=== PATIENT | male | born 1995 | race Caucasian/White ===

== ENCOUNTER 2017-02-02 11:49 | Inpatient (IN) | payer BC ==
[~2017-02-02] VITALS: Ht 182.9 cm; Wt 75.5 kg
[2017-02-02 11:50] VITALS: BP 135/81; PULSE 81; RESP 14; TEMP 98.4; O2SAT 97
[2017-02-02 13:16] LABS: AUTOMATED NEUTROPHIL # 3.1 TH/MM3 (1.8-7.7); BASOPHIL % 0.7 % (0.0-2.0); EOSINOPHIL # 0.1 TH/MM3 (0-0.4); EOSINOPHIL % 1.3 % (0.0-4.0); HEMO FLAGS DIFF FINAL; LYMPH % 30.1 % (9.0-44.0); LYMPHOCYTE # 1.6 TH/MM3 (1.0-4.8); MEAN CORPUSCULAR HEMOGLOBIN 31.1 PG (27.0-34.0); MEAN CORPUSCULAR HGB CONC 35.3 % (32.0-36.0); MONO % 7.9 % (0.0-8.0); PLATELET COUNT 207 TH/MM3 (150-450); RED CELL DISTRIBUTION WIDTH 12.6 % (11.6-17.2); WHITE BLOOD COUNT 5.2 TH/MM3 (4.0-11.0)
[2017-02-02 13:20] VITALS: BP_SYST 112; BP_DIAS 18; BP_DIAS 68; PULSE 76; RESP 18; TEMP 98.6; O2SAT 99
[2017-02-02 13:30] LABS: ANION GAP 4 MEQ/L (5-15); BICARBONATE 29.6 MEQ/L (21.0-32.0); BLOOD UREA NITROGEN 5 MG/DL (7-18); CHLORIDE 104 MEQ/L (98-107); GLOMERULAR FILTRATION RATE 104 ML/MIN (>89); POTASSIUM 3.8 MEQ/L (3.5-5.1); SODIUM (NA) 138 MEQ/L (136-145)
[2017-02-02 13:36] LABS: ALCOHOL LESS THAN 3 MG/DL (0-5)
[2017-02-02] MEDS ORDERED: ALUMINUM/MAGNESIUM/SIMETH 30 ML CUP PO PRN (14:15)
[2017-02-02] MEDS ORDERED: MAGNESIUM HYDROXIDE SUSP 30 ML CUP PO PRN (14:15)
[2017-02-02] MEDS ORDERED: diphenhydrAMINE HCL 50 MG/ML VIAL IM PRN (14:15)
[2017-02-02] MEDS ORDERED: hydrOXYzine HCL 50 MG TAB PO PRN (14:15)
--- NOTE | 2017-02-02 14:32 | HHI.HP ---
Provisional Diagnosis Admission Date Recluse I. Brief psychotic disorder Certification of Person's Competence To Provide Express and Informed Consent I have personally examined James Ibrahim , a person being served at [facility] on, Feb 02, 2017 14:20. Express and informed consent means consent voluntarily given in writing, by a competent person, after sufficient explanation and disclosure of the subject matter involved to enable the person to make a knowing and willful decision without any element of force, fraud, deceit, duress, or other form of constraint or coercion. This person is 18 years of age or older, is not now known to be incompetent to consent to treatment with a guardian advocate, and does not have a health care surrogate or proxy currently making medical treatment decisions. I have found this person to be one of the following: [X] Competent to provide express and informed consent, as defined above, for voluntary admission to this facility and is competent to provide express and informed consent for treatment. He/she has the consistent capacity to make well reasoned, willful, and knowing decisions concerning his or her medical or mental health treatment. The person fully and consistently understands the purpose of the admission for examination/placement and is fully capable of personally exercising all rights assured [place] Incompetent to provide express and informed consent to voluntary admission, and this is incompetent to provide express and informed consent to treatment. The person must be transferred to involuntary status and a petition for a guardian advocate filed with the Circuit Court. [] Refusing to provide express and informed consent to voluntary admission but is competent to provide express and informed consent for treatment. The person must be discharged or transferred to involuntary status. Form shall be completed within 24 hours of a person's arrival at the receiving facility and filed in the clinical record of each person: 1. Admitted on a voluntary basis 2. Permitted to provide express and informed consent to his/her own treatment 3. Allowed to transfer from involuntary to voluntary status 4. Prior to permitting a person to consent to his or her own treatment after having been previously found incompetent to consent to treatment. History of Present Illness Capacity: Has Capacity HPI 21-year-old male presents voluntarily after seeing his psychiatrist, Dr. Clifton, for a first appointment today. Apparently he told Dr. Clifton about his suicidal thinking and auditory hallucinations and he was sent here for further evaluation and treatment. The patient remains voluntary because he does want treatment and he does feel he needs to be admitted to the hospital. He has a long psychiatric history which is both complex and problematic. The patient's biological father approximately 7 years ago and the patient has been spiraling downward since that time. He does have a step father and mother who are generally supportive of him but he is attempted to kill himself on multiple occasions by hanging, overdose, cutting himself, etc. He has also had a problem with drug abuse and was treated at [facility] approximately 10 times in the last 7 years. He has been living in a sober living house for the last 2 weeks but does not feel safe there. The auditory hallucinations that he experiences also tell him to use drugs. The patient's presentation is further complicated by the fact that he has had some kind of brain tumor with obvious surgery and he carries multiple scars on his skull. He has a strange voice and affect and he appears to process information with some difficulty. There is a nayeli indifference to his presentation which appears to be related to his brain surgeries/tumor. He feels unsafe at this time and he is unable to contract for safety. He has not been using drugs for the last 2 weeks since residing at the sober living house. Review of Systems Psychiatric: COMPLAINS OF: Anxiety, Depression, Hallucinations, Suicidal Ideation Except as stated in HPI: all other systems reviewed are Neg Past Psych History Psychological trauma history Unknown Violence risk - others (6 mos) Minimal to moderate. Violence risk - self (6 mos) High Substance Abuse History Drugs/Alcohol past 12 months History of substance abuse, including IVDA heroin. Patient has been treated for substance abuse on multiple occasions. His last treatment was at [facility]. He has apparently been clean since his release and currently resides in a sober living house. Past Family Social History Coded Allergies: vancomycin (Verified Allergy, Unknown, 02/02/17) Current Medications Medications (Trade) Dose Ordered Sig/Corine Route Start Time Stop Time Status Last Admin (Benadryl) 50 mg Q6H PRN PO 02/02/17 14:15 UNV (Benadryl Inj) 50 mg Q6H PRN IM 02/02/17 14:15 UNV (Tylenol) 650 mg Q4H PRN PO 02/02/17 14:15 UNV (Milk Of Magnesia Liq) 30 ml DAILY PRN PO 02/02/17 14:15 UNV (Mag-Al Plus Susp Liq) 30 ml Q6H PRN PO 02/02/17 14:15 UNV (Desyrel) 50 mg HS PRN PO 02/02/17 14:15 UNV (Atarax) 50 mg Q6H PRN PO 02/02/17 14:15 UNV Family Psych History Positive for mood and anxiety disorders. Social History Patient is not currently employed. He does have at least some support from his mother and stepfather. He obviously has a medical condition including a brain tumor and surgery. He takes an anticonvulsant. He has a different/odd way of relating to people. He has obviously use drugs intermittently for the last approximately 6 years. Patient's Strengths (min. 2) Patient is verbal and has access to healthcare. Physical Exam GENERAL: SKIN: Warm and dry. HEAD: Normocephalic. EYES: No scleral icterus. No injection or drainage. NECK: Supple, trachea midline. No JVD or lymphadenopathy. CARDIOVASCULAR: Regular rate and rhythm without murmurs, gallops, or rubs. RESPIRATORY: Breath sounds equal bilaterally. No accessory muscle use. GASTROINTESTINAL: Abdomen soft, non-tender, nondistended. MUSCULOSKELETAL: No cyanosis, or edema. BACK: Nontender without obvious deformity. No CVA tenderness. Vital Signs Vital Signs Date Time Temp Pulse Resp B/P (MAP) Pulse Ox O2 Delivery O2 Flow Rate FiO2 02/02/17 13:20 98.6 76 18 112/68 (83) 99 Room Air Lab Results Test 02/02/17 12:48 02/02/17 12:51 White Blood Count 5.2 TH/MM3 Red Blood Count 5.00 MIL/MM3 Hemoglobin 15.5 GM/DL Hematocrit 44.0 % Mean Corpuscular Volume 88.0 FL Mean Corpuscular Hemoglobin 31.1 PG Mean Corpuscular Hemoglobin Concent 35.3 % Red Cell Distribution Width 12.6 % Platelet Count 207 TH/MM3 Mean Platelet Volume 9.0 FL Neutrophils (%) (Auto) 60.0 % Lymphocytes (%) (Auto) 30.1 % Monocytes (%) (Auto) 7.9 % Eosinophils (%) (Auto) 1.3 % Basophils (%) (Auto) 0.7 % Neutrophils # (Auto) 3.1 TH/MM3 Lymphocytes # (Auto) 1.6 TH/MM3 Monocytes # (Auto) 0.4 TH/MM3 Eosinophils # (Auto) 0.1 TH/MM3 Basophils # (Auto) 0.0 TH/MM3 CBC Comment DIFF FINAL Differential Comment Blood Urea Nitrogen 5 MG/DL Creatinine 0.91 MG/DL Random Glucose 99 MG/DL Calcium Level 9.3 MG/DL Sodium Level 138 MEQ/L Potassium Level 3.8 MEQ/L Chloride Level 104 MEQ/L Carbon Dioxide Level 29.6 MEQ/L Anion Gap 4 MEQ/L Estimat Glomerular Filtration Rate 104 ML/MIN Ethyl Alcohol Level LESS THAN 3 MG/DL Urine Opiates Screen NEG Urine Barbiturates Screen NEG Urine Amphetamines Screen NEG Urine Benzodiazepines Screen NEG Urine Cocaine Screen NEG Urine Cannabinoids Screen NEG Mental Status Examination Appearance: Other Consciousness: Alert Orientation: x4 Motor Activity: Normal gait Speech: Hesitant Language: Adequate Fund of Knowledge: Inadequate Attention and Concentration: Easily Distracted Memory: Impaired Mood: Sad, Anxious Affect: Sad, Anxious Thought Process & Associations: Intact, Other Thought Content: Bizarre thinking, Ideas of reference, Hallucinations, Preoccupations Hallucination Type: Auditory Delusion Type: None Suicidal Ideation: Yes Suicidal Plan: No Suicidal Intention: No Homicidal Ideation: No Homicidal Plan: No Homicidal Intention: No Insight: Fair Judgment: Impulsive Assessment & Plan Problem List: (1) Brief psychotic disorder ICD Codes: F23 - Brief psychotic disorder Assessment & Plan Estimated LOS: days. 21-year-old male with symptoms of suicidal ideation and auditory hallucinations of a command nature. Patient is afraid and wants help by being admitted to the hospital. This physician feels the patient is at high risk for self-harm due to his cognitive impairments (as a result of brain tumor and surgeries) his history of drug abuse, and his history of multiple suicide attempts by lethal means. His age also puts him at risk. He does not appear to process information quickly and his affect and relatedness are impaired. For this reason, the patient is being admitted for further evaluation and treatment. This physician has ordered a CBC and comprehensive metabolic panel to determine if he has any infectious process or metabolic process which might be causing or contributing to his psychosis and depression. This physician has also ordered thyroid stimulating hormone level, vitamin B-12 and vitamin D level, to determine if deficiencies in these areas are causing or contributing to his psychosis and depression. This physician also ordered a hospitalist consult as the patient is on antiseizure medicine. This physician ordered an occupational therapy consult to evaluate the patient's functionality and ability to learn and control his behavior. This physician ordered a EKG to determine the patient 's cardiac conduction status, prior to significantly altering his psychotropic medicines, which might adversely affect his heart. This physician spoke to nurse Hodges regarding the patient's recent behavior. Finally, case management will be involved to assist with further information gathering and disposition planning. Pop Boyd MD Feb 02, 2017 14:32
[2017-02-02] MEDS ORDERED: LEVE250 PO (14:53)
[2017-02-02] MEDS ORDERED: BENZ0.5T PO (14:53)
[2017-02-02] MEDS ORDERED: RISP2TAB37 PO (14:53)
[2017-02-02 16:20] VITALS: BP 125/62; PULSE 87; RESP 20; TEMP 98.4; O2SAT 100
--- NOTE | 2017-02-02 16:48 | PD ---
HPI Chief Complaint: Psychiatric Symptoms Time Seen by Provider: 16:48 Travel History International Travel<30 days: No Contact w/Intl Traveler<30days: No Traveled to known affect area: No History of Present Illness HPI 21-year-old male sent to the emergency department by his psychiatrist Dr. Esquivel for psychiatric evaluation. Patient states he has been having more frequent auditory hallucinations. He has been off his medication for at least the last week. He has previous suicidal attempts. He states he is not currently suicidal. Denies illicit drug use. No other symptoms to report. PFSH Past Medical History Depression: Yes Diminished Hearing: No Neurologic: Yes (S/P brain surgery, on Keppra) Tetanus Vaccination: Unknown Past Surgical History Other Surgery: Yes (Removal of Brain Tumor, Hx Brain Cancer) Social History Alcohol Use: No Tobacco Use: Yes Substance Use: Yes Allergies-Medications (Allergen,Severity, Reaction): Coded Allergies: vancomycin (Verified Allergy, Unknown, 02/02/17) Reported Meds & Prescriptions Reported Meds & Active Scripts Active Reported Risperdal (Risperidone) 2 Mg Tab 2 Mg PO BID Benztropine (Benztropine Mesylate) 0.5 Mg Tab 0.5 Mg PO BID Keppra (Levetiracetam) 250 Mg Tab 250 Mg PO BID Review of Systems Except as stated in HPI: all other systems reviewed are Neg Physical Exam Narrative GENERAL: Well-nourished, well-developed nail patient, ambulatory no acute distress SKIN: Focused skin assessment warm/dry. HEAD: Normocephalic. Atraumatic EYES: No scleral icterus. No injection or drainage. NECK: trachea midline CARDIOVASCULAR: Regular rate RESPIRATORY: No accessory muscle use. GASTROINTESTINAL: Abdomen nondistended. MUSCULOSKELETAL: No cyanosis, or edema. BACK: without obvious deformity. Data Data Last Documented VS Vital Signs Date Time Temp Pulse Resp B/P (MAP) Pulse Ox O2 Delivery O2 Flow Rate FiO2 02/02/17 13:20 98.6 76 18 112/68 (83) 99 Room Air Orders Orders Complete Blood Count With Diff (02/02/17 12:21) Basic Metabolic Panel (Bmp) (02/02/17 12:21) Psych Screen (02/02/17 12:21) Drug Screen, Random Urine (02/02/17 12:21) Alcohol (Ethanol) (02/02/17 12:21) Admit Order (Ed Use Only) (02/02/17 14:13) Labs Laboratory Tests Test 02/02/17 12:48 02/02/17 12:51 White Blood Count 5.2 TH/MM3 Red Blood Count 5.00 MIL/MM3 Hemoglobin 15.5 GM/DL Hematocrit 44.0 % Mean Corpuscular Volume 88.0 FL Mean Corpuscular Hemoglobin 31.1 PG Mean Corpuscular Hemoglobin Concent 35.3 % Red Cell Distribution Width 12.6 % Platelet Count 207 TH/MM3 Mean Platelet Volume 9.0 FL Neutrophils (%) (Auto) 60.0 % Lymphocytes (%) (Auto) 30.1 % Monocytes (%) (Auto) 7.9 % Eosinophils (%) (Auto) 1.3 % Basophils (%) (Auto) 0.7 % Neutrophils # (Auto) 3.1 TH/MM3 Lymphocytes # (Auto) 1.6 TH/MM3 Monocytes # (Auto) 0.4 TH/MM3 Eosinophils # (Auto) 0.1 TH/MM3 Basophils # (Auto) 0.0 TH/MM3 CBC Comment DIFF FINAL Differential Comment Blood Urea Nitrogen 5 MG/DL Creatinine 0.91 MG/DL Random Glucose 99 MG/DL Calcium Level 9.3 MG/DL Sodium Level 138 MEQ/L Potassium Level 3.8 MEQ/L Chloride Level 104 MEQ/L Carbon Dioxide Level 29.6 MEQ/L Anion Gap 4 MEQ/L Estimat Glomerular Filtration Rate 104 ML/MIN Ethyl Alcohol Level LESS THAN 3 MG/DL Urine Opiates Screen NEG Urine Barbiturates Screen NEG Urine Amphetamines Screen NEG Urine Benzodiazepines Screen NEG Urine Cocaine Screen NEG Urine Cannabinoids Screen NEG MDM Medical Decision Making Medical Screen Exam Complete: Yes Emergency Medical Condition: Yes Medical Record Reviewed: Yes Differential Diagnosis Mood disorder versus personality disorder versus adjustment reaction disorder Narrative Course 21-year-old male presents to the emergency department voluntarily for psychiatric evaluation. Patient appears without distress. Lab work is without acute concern. He is medically cleared for psychiatric screening for further evaluation and disposition. Mental health screening discussed with the patient. Psychiatric screen ordered. Diagnosis Primary Impression: Brief psychotic disorder Condition: Stable GainesLaurel stewart OTTO Feb 02, 2017 16:48
[2017-02-02] MEDS: REMOVE OLD PATCH T-DERMAL SCH (17:00)
[2017-02-02] MEDS: NICOTINE 14 MG/24 HR PATCH T-DERMAL SCH (17:00)
[2017-02-02] MEDS: risperiDONE 1 MG TAB PO SCH (20:48)
[2017-02-02] MEDS: BENZTROPINE MESYLATE 1 MG TAB PO SCH (20:48)
[2017-02-02] MEDS: levETIRAcetam 250 MG TAB PO SCH (20:48)
[2017-02-02] MEDS ORDERED: traZODone HCL 50 MG TAB PO PRN (21:00)
[2017-02-03 05:57] VITALS: BP 105/53; PULSE 46; RESP 18; TEMP 97.6; O2SAT 97
[2017-02-03] MEDS: BENZTROPINE MESYLATE 1 MG TAB PO SCH ×2 (08:40→20:41)
[2017-02-03] MEDS: risperiDONE 1 MG TAB PO SCH ×2 (08:40→20:41)
[2017-02-03] MEDS: NICOTINE 14 MG/24 HR PATCH T-DERMAL SCH (08:47)
[2017-02-03] MEDS: REMOVE OLD PATCH T-DERMAL SCH (08:47)
[2017-02-03] MEDS: levETIRAcetam 250 MG TAB PO SCH ×2 (09:00→20:41)
--- NOTE | 2017-02-03 09:41 | PD.CONS ---
HPI Service [facility] Hospitalists Consult Requested By Dr. Stuart Reason for Consult Medical management Primary Care Physician No Primary Care Physician Diagnoses: History of Present Illness 51-year-old male with past medical history of brain tumor with resection, history of seizures last seizure 3 years ago fairly controlled Keppra. The patient is admitted to psych unit for further evaluation. The hospitalist was consulted for management of medical problems. The patient appears in not distress at this time. He denies having any seizures. No headaches, motor deficits. Denies any nausea, vomiting, diarrhea or constipation. No urinary complaints. She has chest pain. Appetite is good his eating well. Has no complaints at this time. Review of Systems Except as stated in HPI: all other systems reviewed are Neg Past Family Social History Allergies: Coded Allergies: vancomycin (Verified Allergy, Unknown, 02/02/17) Past Medical History History of brain tumor with surgery Past Surgical History Surgical resection of brain tumor Reported Medications Reported Meds & Active Scripts Active Reported Risperdal (Risperidone) 2 Mg Tab 2 Mg PO BID Benztropine (Benztropine Mesylate) 0.5 Mg Tab 0.5 Mg PO BID Keppra (Levetiracetam) 250 Mg Tab 250 Mg PO BID Family History Family is healthy Social History Denies alcohol use. History of heroine abuse last use was November 2016 Tobacco use 1 pack per day Physical Exam Vital Signs Vital Signs Date Time Temp Pulse Resp B/P (MAP) Pulse Ox O2 Delivery O2 Flow Rate FiO2 02/03/17 05:57 97.6 46 18 105/53 (70) 97 02/02/17 16:20 98.4 87 20 125/62 (83) 100 02/02/17 13:20 98.6 76 18 112/68 (83) 99 Room Air 02/02/17 11:50 98.4 81 14 135/81 (99) 97 Physical Exam GENERAL: This is a well-nourished, well-developed patient, in no apparent distress. SKIN: No rashes, ecchymoses or lesions. Cool and dry. HEAD: Old surgical scars on scalp. Normocephalic. No temporal or scalp tenderness. EYES: Pupils equal round and reactive. Extraocular motions intact. No scleral icterus. No injection or drainage. ENT: Nose without bleeding, purulent drainage or septal hematoma. Throat without erythema, tonsillar hypertrophy or exudate. Uvula midline. Airway patent. NECK: Trachea midline. No JVD or lymphadenopathy. Supple, nontender, no meningeal signs. CARDIOVASCULAR: Regular rate and rhythm without murmurs, gallops, or rubs. RESPIRATORY: Clear to auscultation. Breath sounds equal bilaterally. No wheezes , rales, or rhonchi. GASTROINTESTINAL: Abdomen soft, non-tender, nondistended. No hepato-splenomegaly , or palpable masses. No guarding. MUSCULOSKELETAL: Extremities without clubbing, cyanosis, or edema. No joint tenderness, effusion, or edema noted. No calf tenderness. Negative Homans sign bilaterally. NEUROLOGICAL: Awake and alert. Cranial nerves II through XII intact. Motor and sensory grossly within normal limits. Five out of 5 muscle strength in all muscle groups. Normal speech. Laboratory Laboratory Tests Test 02/02/17 12:48 02/02/17 12:51 White Blood Count 5.2 Red Blood Count 5.00 Hemoglobin 15.5 Hematocrit 44.0 Mean Corpuscular Volume 88.0 Mean Corpuscular Hemoglobin 31.1 Mean Corpuscular Hemoglobin Concent 35.3 Red Cell Distribution Width 12.6 Platelet Count 207 Mean Platelet Volume 9.0 Neutrophils (%) (Auto) 60.0 Lymphocytes (%) (Auto) 30.1 Monocytes (%) (Auto) 7.9 Eosinophils (%) (Auto) 1.3 Basophils (%) (Auto) 0.7 Neutrophils # (Auto) 3.1 Lymphocytes # (Auto) 1.6 Monocytes # (Auto) 0.4 Eosinophils # (Auto) 0.1 Basophils # (Auto) 0.0 CBC Comment DIFF FINAL Differential Comment Blood Urea Nitrogen 5 Creatinine 0.91 Random Glucose 99 Calcium Level 9.3 Sodium Level 138 Potassium Level 3.8 Chloride Level 104 Carbon Dioxide Level 29.6 Anion Gap 4 Estimat Glomerular Filtration Rate 104 Ethyl Alcohol Level LESS THAN 3 Urine Opiates Screen NEG Urine Barbiturates Screen NEG Urine Amphetamines Screen NEG Urine Benzodiazepines Screen NEG Urine Cocaine Screen NEG Urine Cannabinoids Screen NEG Result Diagram: 02/02/17 1248 02/02/17 1248 Assessment and Plan Assessment and Plan 21-year-old male history of polysubstance use, anxiety depression, history of brain tumor resection, seizures Polysubstance use, anxiety depression. Management per psychiatry Counselled regarding polysubstance abuse. Nicotine patch. History of brain tumor with resection Seizures Continue Keppra Monitor for seizures Patient says has been controlled on Keppra and last seizure was 3 years ago DVT prophylaxis ambulation Thank you for this consult Discussed Condition With Patient, nurse Alise Bustos MD Feb 03, 2017 09:41
[2017-02-03] MEDS ORDERED: INFLUENZA VIRUS VACCINE (QUADRIVALENT) 0.5 ML SYR IM ONE (10:00)
[2017-02-03 12:43] LABS: AUTOMATED NEUTROPHIL # 3.6 TH/MM3 (1.8-7.7); BASOPHIL % 0.8 % (0.0-2.0); EOSINOPHIL # 0.2 TH/MM3 (0-0.4); EOSINOPHIL % 3.4 % (0.0-4.0); HEMATOCRIT 45.1 % (39.0-51.0); HEMO FLAGS DIFF FINAL; LYMPHOCYTE # 1.5 TH/MM3 (1.0-4.8); MEAN CELL VOLUME 89.2 FL (80.0-100.0); MEAN CORPUSCULAR HEMOGLOBIN 30.2 PG (27.0-34.0); MEAN CORPUSCULAR HGB CONC 33.9 % (32.0-36.0); NEUT % 63.8 % (16.0-70.0); PLATELET COUNT 197 TH/MM3 (150-450); RED BLOOD COUNT 5.06 MIL/MM3 (4.50-5.90); RED CELL DISTRIBUTION WIDTH 12.5 % (11.6-17.2); WHITE BLOOD COUNT 5.6 TH/MM3 (4.0-11.0)
[2017-02-03 13:12] LABS: ANION GAP 6 MEQ/L (5-15); AST (GOT) 5 U/L (15-37); BICARBONATE 29.7 MEQ/L (21.0-32.0); BLOOD UREA NITROGEN 11 MG/DL (7-18); CHLORIDE 101 MEQ/L (98-107); GLOMERULAR FILTRATION RATE 85 ML/MIN (>89); POTASSIUM 3.7 MEQ/L (3.5-5.1); SODIUM (NA) 137 MEQ/L (136-145)
[2017-02-03 13:13] LABS: ALT (GPT) 16 U/L (12-78)
[2017-02-03 13:39] LABS: ALKALINE PHOSPHATASE 90 U/L (45-117); HDL CHOLESTEROL 39.7 MG/DL (40.0-60.0); LDL CHOLESTEROL 60 MG/DL (0-99); TOTAL BILIRUBIN ADULT 0.6 MG/DL (0.2-1.0)
[2017-02-03 14:26] LABS: HEMOGLOBIN A1b 0.8 %; HEMOGLOBIN Ao 86.9 %; HEMOGLOBIN F 0.8 %; HEMOGLOBIN LA1C 1.8 %; HEMOGLOBIN P3 3.1 %
--- NOTE | 2017-02-03 15:20 | EKG ---
Date Performed: 02/03/2017 Time Performed: 13:03:10 PTAGE: 21 years EKG: Sinus rhythm MARKED RIGHT AXIS DEVIATION ABNORMAL ECG NO PREVIOUS TRACING DOCTOR: Jim Boss Interpretating Date/Time 02/03/2017 15:19:08
[2017-02-03] MEDS: ACETAMINOPHEN 325 MG TAB PO PRN (15:28)
--- NOTE | 2017-02-03 16:37 | HHI.PYPN ---
Subjective Remarks Issue initially admitted by Dr. Pop Boyd is a psych evaluation reviewed and agreed with. I have finished the initial psychiatric template. Seen by me in his room with nurse Cristiane, patient is alert oriented white male showing some cognitive deficits related to his prior craniotomies for cancer of the brain. There is some word seeking mildly fascia some balance issues. There is also auditory hallucinations. Patient states she's had them in the past there is also addictions he has been addicted with both heroin and methamphetamines. Has been in their old Strattera very for 28 days it appears without his psychotropic medication is just start of the medication yesterday. He states the voices are somewhat intermittent. He does denies suicidality. Does wish to be discharged back to sober living however patient needs further stabilization with his medication he is willing to do that at the present time Review of Systems Except as stated in HPI: all other systems reviewed are Neg Mental Status Examination Appearance: Appropriate, Other Consciousness: Alert Orientation: x4 Motor Activity: Normal gait Speech: Hesitant Language: Adequate Fund of Knowledge: Inadequate Attention and Concentration: Easily Distracted Memory: Impaired Mood: Sad, Anxious Affect: Other (decreased range of motion intensity) Thought Process & Associations: Intact, Other Thought Content: Bizarre thinking, Ideas of reference, Hallucinations, Preoccupations Hallucination Type: Auditory Delusion Type: None Suicidal Ideation: Yes Suicidal Plan: No Suicidal Intention: No Homicidal Ideation: No Homicidal Plan: No Homicidal Intention: No Insight: Fair Judgment: Impulsive Results Labs Test 02/03/17 12:25 White Blood Count 5.6 TH/MM3 Red Blood Count 5.06 MIL/MM3 Hemoglobin 15.3 GM/DL Hematocrit 45.1 % Mean Corpuscular Volume 89.2 FL Mean Corpuscular Hemoglobin 30.2 PG Mean Corpuscular Hemoglobin Concent 33.9 % Red Cell Distribution Width 12.5 % Platelet Count 197 TH/MM3 Mean Platelet Volume 8.9 FL Neutrophils (%) (Auto) 63.8 % Lymphocytes (%) (Auto) 26.0 % Monocytes (%) (Auto) 6.0 % Eosinophils (%) (Auto) 3.4 % Basophils (%) (Auto) 0.8 % Neutrophils # (Auto) 3.6 TH/MM3 Lymphocytes # (Auto) 1.5 TH/MM3 Monocytes # (Auto) 0.3 TH/MM3 Eosinophils # (Auto) 0.2 TH/MM3 Basophils # (Auto) 0.0 TH/MM3 CBC Comment DIFF FINAL Differential Comment Blood Urea Nitrogen 11 MG/DL Creatinine 1.09 MG/DL Random Glucose 97 MG/DL Total Protein 8.2 GM/DL Albumin 4.3 GM/DL Calcium Level 8.9 MG/DL Alkaline Phosphatase 90 U/L Aspartate Amino Transf (AST/SGOT) 5 U/L Alanine Aminotransferase (ALT/SGPT) 16 U/L Total Bilirubin 0.6 MG/DL Sodium Level 137 MEQ/L Potassium Level 3.7 MEQ/L Chloride Level 101 MEQ/L Carbon Dioxide Level 29.7 MEQ/L Anion Gap 6 MEQ/L Estimat Glomerular Filtration Rate 85 ML/MIN Hemoglobin A1c 4.9 % Triglycerides Level 87 MG/DL Cholesterol Level 117 MG/DL LDL Cholesterol 60 MG/DL HDL Cholesterol 39.7 MG/DL Cholesterol/HDL Ratio 2.94 RATIO Vitamin B12 Level 538 PG/ML 25-Hydroxy Vitamin D Total 22.4 ng/ML Thyroid Stimulating Hormone 3rd Gen 1.040 uIU/ML Vitals/IOs Vital Signs Date Time Temp Pulse Resp B/P (MAP) Pulse Ox O2 Delivery O2 Flow Rate FiO2 02/03/17 05:57 97.6 46 18 105/53 (70) 97 02/02/17 13:20 Room Air Assessment & Plan Problem List: (1) Brief psychotic disorder ICD Codes: F23 - Brief psychotic disorder Assessment & Plan Estimated LOS: days patient remained psychotic at this time. He denies suicidality homicidality acknowledges of the voices. There is also what appears to be the cognitive deficits and behavior secondary to his multiple brain surgeries. For now continue treatment Justification for Cont. Inpt. This time patient will decompensate if place the lower level of care Discharge Planning Hopefully was patient stabilizing return to her sober living house Ja Stuart MD Feb 03, 2017 16:37
[2017-02-03 18:10] VITALS: BP 113/54; PULSE 62; RESP 18; TEMP 98; O2SAT 100
[2017-02-03] MEDS ORDERED: levETIRAcetam 250 MG TAB PO SCH (21:00)
[2017-02-04 06:17] VITALS: BP 123/66; PULSE 61; RESP 17; TEMP 98.3; O2SAT 96
[2017-02-04] MEDS: REMOVE OLD PATCH T-DERMAL SCH (09:00)
[2017-02-04] MEDS: risperiDONE 1 MG TAB PO SCH ×2 (10:46→21:11)
[2017-02-04] MEDS: levETIRAcetam 250 MG TAB PO SCH ×2 (10:46→21:11)
[2017-02-04] MEDS: BENZTROPINE MESYLATE 1 MG TAB PO SCH ×2 (10:47→21:11)
[2017-02-04] MEDS: NICOTINE 14 MG/24 HR PATCH T-DERMAL SCH (10:53)
--- NOTE | 2017-02-04 15:34 | HHI.PYPN ---
Subjective Remarks Patient seen in [place] with floor staff. Compliant medications. Patient mood now is somewhat elevated stating he wants to be discharged now. States he talked with his mother who said there will be a bed available for him at [facility]. We have had no word related to this. This been note medication: Counselor either. He now denies any voices of denies suicidality. However considering this patient's cognitive disabilities I am somewhat reluctant to believe all that he is saying. Will have counselor attempt to reach patient's mother to verify placement. Until that time we'll continue treatment no change Review of Systems Except as stated in HPI: all other systems reviewed are Neg Mental Status Examination Appearance: Appropriate, Other Consciousness: Alert Orientation: x4 Motor Activity: Normal gait Speech: Hesitant Language: Adequate Fund of Knowledge: Inadequate Attention and Concentration: Easily Distracted Memory: Impaired Mood: Sad, Anxious Affect: Other (decreased range of motion intensity) Thought Process & Associations: Intact, Other Thought Content: Bizarre thinking, Ideas of reference, Hallucinations, Preoccupations Hallucination Type: Auditory Delusion Type: None Suicidal Ideation: Yes Suicidal Plan: No Suicidal Intention: No Homicidal Ideation: No Homicidal Plan: No Homicidal Intention: No Insight: Fair Judgment: Impulsive Results Vitals/IOs Vital Signs Date Time Temp Pulse Resp B/P (MAP) Pulse Ox O2 Delivery O2 Flow Rate FiO2 02/04/17 06:17 98.3 61 17 123/66 (85) 96 02/02/17 13:20 Room Air Assessment & Plan Problem List: (1) Brief psychotic disorder ICD Codes: F23 - Brief psychotic disorder Assessment & Plan Estimated LOS: days patient continues intrusive, somewhat vigilant and paranoid. He denies voices at this time. He has been compliant with medication. For now continue treatment Justification for Cont. Inpt. At this time patient decompensate placed in a lower level of care Discharge Planning We need to verify patient's placement in a sober living facility Ja Stuart MD Feb 04, 2017 15:34
[2017-02-04 18:00] VITALS: BP 123/61; PULSE 68; RESP 18; TEMP 97.5; O2SAT 98
[2017-02-04] MEDS: diphenhydrAMINE HCL 50 MG CAP PO PRN (21:15)
[2017-02-05 06:01] VITALS: BP 94/50; PULSE 51; RESP 18; TEMP 98; O2SAT 97
[2017-02-05] MEDS: NICOTINE 14 MG/24 HR PATCH T-DERMAL SCH (08:44)
[2017-02-05] MEDS: risperiDONE 1 MG TAB PO SCH ×2 (08:44→20:47)
[2017-02-05] MEDS: levETIRAcetam 250 MG TAB PO SCH ×2 (08:45→20:47)
[2017-02-05] MEDS: BENZTROPINE MESYLATE 1 MG TAB PO SCH ×2 (08:45→20:47)
[2017-02-05] MEDS: REMOVE OLD PATCH T-DERMAL SCH (09:00)
--- NOTE | 2017-02-05 17:01 | HHI.PYPN ---
Subjective Remarks Patient was seen and case discussed with nursing. Patient is pleasant and cooperative with exam. Good eye contact. Continues to have auditory hallucinations telling him to go use drugs. Sprouted being clean for almost 2 months. Denies suicidal or homicidal ideation. Tolerating medications well Mental Status Examination Appearance: Appropriate, Other Consciousness: Alert Orientation: x4 Motor Activity: Normal gait Speech: Hesitant Language: Adequate Fund of Knowledge: Inadequate Attention and Concentration: Easily Distracted Memory: Impaired Mood: Appropriate Affect: Anxious Thought Process & Associations: Intact, Other Thought Content: Bizarre thinking, Ideas of reference, Hallucinations, Preoccupations Hallucination Type: Auditory Delusion Type: None Suicidal Ideation: Yes Suicidal Plan: No Suicidal Intention: No Homicidal Ideation: No Homicidal Plan: No Homicidal Intention: No Insight: Fair Judgment: Impulsive Results Vitals/IOs Vital Signs Date Time Temp Pulse Resp B/P (MAP) Pulse Ox O2 Delivery O2 Flow Rate FiO2 02/05/17 06:01 98.0 51 18 94/50 (65) 97 02/02/17 13:20 Room Air Assessment & Plan Problem List: (1) Brief psychotic disorder ICD Codes: F23 - Brief psychotic disorder Assessment & Plan Continue current treatment plan Justification for Cont. Inpt. Patient would decompensate in a less restrictive setting Mian Cazares DO Feb 05, 2017 17:01
[2017-02-05 18:26] VITALS: BP 109/62; PULSE 54; RESP 18; TEMP 97.9; O2SAT 54
[2017-02-05] MEDS: diphenhydrAMINE HCL 50 MG CAP PO PRN (20:47)
[2017-02-06 06:19] VITALS: BP 103/49; PULSE 49; RESP 16; TEMP 98.2; O2SAT 97
[2017-02-06] MEDS: REMOVE OLD PATCH T-DERMAL SCH (09:00)
[2017-02-06] MEDS: risperiDONE 1 MG TAB PO SCH ×2 (09:54→20:23)
[2017-02-06] MEDS: BENZTROPINE MESYLATE 1 MG TAB PO SCH ×2 (09:56→20:24)
[2017-02-06] MEDS: levETIRAcetam 250 MG TAB PO SCH ×2 (09:57→20:23)
[2017-02-06] MEDS: NICOTINE 14 MG/24 HR PATCH T-DERMAL SCH (10:06)
[2017-02-06] MEDS: ACETAMINOPHEN 325 MG TAB PO PRN (10:08)
--- NOTE | 2017-02-06 15:45 | HHI.PYPN ---
Subjective Remarks Patient was seen and case discussed with nursing. Patient is pleasant and cooperative with exam. Eating and sleeping well. Says he is in a "good mood." No behavioral outbursts. Tolerating medications well Mental Status Examination Appearance: Appropriate, Other Consciousness: Alert Orientation: x4 Motor Activity: Normal gait Speech: Hesitant Language: Adequate Fund of Knowledge: Inadequate Attention and Concentration: Easily Distracted Memory: Impaired Mood: Appropriate Affect: Appropriate Thought Process & Associations: Intact, Other Thought Content: Preoccupations Hallucination Type: Auditory Delusion Type: None Suicidal Ideation: No Suicidal Plan: No Suicidal Intention: No Homicidal Ideation: No Homicidal Plan: No Homicidal Intention: No Insight: Fair Judgment: Impulsive Results Vitals/IOs Vital Signs Date Time Temp Pulse Resp B/P (MAP) Pulse Ox O2 Delivery O2 Flow Rate FiO2 02/06/17 11:10 12 02/06/17 06:19 98.2 49 103/49 (67) 97 02/02/17 13:20 Room Air Assessment & Plan Problem List: (1) Brief psychotic disorder ICD Codes: F23 - Brief psychotic disorder Assessment & Plan Continue current treatment plan Justification for Cont. Inpt. Patient would decompensate in a less restrictive setting Mian Cazares DO Feb 06, 2017 15:45
[2017-02-06 17:17] VITALS: BP 117/56; PULSE 55; RESP 18; TEMP 97.9; O2SAT 100
[2017-02-06] MEDS: diphenhydrAMINE HCL 50 MG CAP PO PRN (20:24)
[2017-02-07 05:45] VITALS: BP 112/55; PULSE 46; RESP 18; TEMP 97.8; O2SAT 97
[2017-02-07] MEDS: risperiDONE 1 MG TAB PO SCH (09:00)
[2017-02-07] MEDS: levETIRAcetam 250 MG TAB PO SCH (09:00)
[2017-02-07] MEDS: NICOTINE 14 MG/24 HR PATCH T-DERMAL SCH (09:00)
[2017-02-07] MEDS: BENZTROPINE MESYLATE 1 MG TAB PO SCH (09:00)
[2017-02-07] MEDS: REMOVE OLD PATCH T-DERMAL SCH (09:00)
[2017-02-07] MEDS ORDERED: RISP2TAB37 PO (09:39)
[2017-02-07] MEDS ORDERED: LEVE250 PO (09:39)
[2017-02-07] MEDS ORDERED: BENZ0.5T PO (09:39)
--- NOTE | 2017-02-07 09:42 | HHI.DS ---
Psychiatry Discharge Summary Inpatient Psychiatric care?: Yes Advance Directive: No Reason Not Provided: DOES NOT HAVE Mental Health AdvanceDirective: No Health Care Proxy: No Admission Admission Date Feb 02, 2017 at 14:15 Admission Diagnosis: (1) Brief psychotic disorder ICD Code: F23 - Brief psychotic disorder Brief History 21-year-old male presents voluntarily after seeing his psychiatrist, Dr. Clifton, for a first appointment today. Apparently he told Dr. Clifton about his suicidal thinking and auditory hallucinations and he was sent here for further evaluation and treatment. The patient remains voluntary because he does want treatment and he does feel he needs to be admitted to the hospital. He has a long psychiatric history which is both complex and problematic. The patient's biological father approximately 7 years ago and the patient has been spiraling downward since that time. He does have a step father and mother who are generally supportive of him but he is attempted to kill himself on multiple occasions by hanging, overdose, cutting himself, etc. He has also had a problem with drug abuse and was treated at [facility] approximately 10 times in the last 7 years. He has been living in a sober living house for the last 2 weeks but does not feel safe there. The auditory hallucinations that he experiences also tell him to use drugs. The patient's presentation is further complicated by the fact that he has had some kind of brain tumor with obvious surgery and he carries multiple scars on his skull. He has a strange voice and affect and he appears to process information with some difficulty. There is a nayeli indifference to his presentation which appears to be related to his brain surgeries/tumor. He feels unsafe at this time and he is unable to contract for safety. He has not been using drugs for the last 2 weeks since residing at the sober living house. Tobacco Use In Past 30 Days: 5 or More Cigarettes/Day Alcohol Use: Never Hospital Course Patient's hospital course was uneventful, he showed cooperation compliance was medication day 1. 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 The was able to share almost though his addiction history. And [facility] once he was stabilized with his medication. He has been compliant with medication to the weekend. Continues denies suicidality homicidality voices or visions. Is been no behavioral problem. There is a bed available for him at [facility] Thus patient was discharged to the facility today Rx 1 month. Follow-up [facility] medication management also referral to [facility] Results Blood Pressure 112 / 55 Vital Signs Date Time Temp Pulse Resp B/P (MAP) Pulse Ox O2 Delivery O2 Flow Rate FiO2 02/07/17 05:45 97.8 46 18 112/55 (74) 97 Laboratory Results Test 02/03/17 12:25 Cholesterol Level 117 MG/DL (120-200) HDL Cholesterol 39.7 MG/DL (40.0-60.0) Hemoglobin A1c 4.9 % (4.3-6.0) LDL Cholesterol 60 MG/DL (0-99) Triglycerides Level 87 MG/DL (42-150) Summary of Procedures None done Pending results at discharge: No Medications # of Antipsychotic meds at D/C: 1 Approp Antipsych med options 1 - Minimum of three failed multiple trials of monotherapy. 2 - Documented plan to taper to monotherapy due to previous use of multiple meds OR cross-taper in progress at D/C. 3 - Documentation of augmentation of Clozapine. 4 - Justification other than those listed in allowable values 1-3, document here : Discharge Discharge Date: Feb 07, 2017 Discharge Diagnosis: (1) Brief psychotic disorder Diagnosis: Principal ICD Code: F23 - Brief psychotic disorder Pt Condition on Discharge: Stable Discharge Disposition: Discharge Home Discharge Instructions Diet Instructions: As Tolerated, No Restrictions Activities you can perform: Regular-No Restrictions Scheduled Appointment: [facility] Discharge Time > 30 minutes Mental Status Examination Appearance: Appropriate, Other Consciousness: Alert Orientation: x4 Motor Activity: Normal gait Speech: Hesitant Language: Adequate Fund of Knowledge: Inadequate Attention and Concentration: Easily Distracted Memory: Impaired Mood: Appropriate Affect: Appropriate Thought Process & Associations: Intact, Other Thought Content: Preoccupations Hallucination Type: Auditory Delusion Type: None Suicidal Ideation: No Suicidal Plan: No Suicidal Intention: No Homicidal Ideation: No Homicidal Plan: No Homicidal Intention: No Insight: Fair Judgment: Impulsive Discharge/Advance Care Plan Health Problems: (1) Brief psychotic disorder Goals to promote your health * To prevent worsening of your condition and complications * To maintain your health at the optimal level Directions to meet your goals Take your medications as prescribed Follow your dietary instruction Follow activity as directed Keep your appointments as scheduled Take your immunizations and boosters as scheduled If your symptoms worsen call your PCP, if no PCP go to Urgent Care Center or Emergency Room For 20/09 questions related to your inpatient stay or results of tests pending at discharge, please contact Dr. Ja Stuart at Smoking is Dangerous to Your Health. Avoid second hand smoking Ja Stuart MD Feb 07, 2017 09:42
== END 2017-02-07 12:30 | disposition home or self-care (01) | DRG 885 ==
LOC: NEPJ 11:49 → NEDA 14:15 → H270 16:20
PROVIDERS: ADMIT Psychiatry & Neurology Psychiatry; ATTEND Psychiatry & Neurology Psychiatry
DX: F23 Brief psychotic disorder (principal); R45.851 Suicidal ideations; F11.20 Opioid dependence, uncomplicated; F15.20 Other stimulant dependence, uncomplicated; F41.8 Other specified anxiety disorders; Z85.841 Personal history of malignant neoplasm of brain; Z72.0 Tobacco use; Z88.1 Allergy status to other antibiotic agents; Z91.5 Personal history of self-harm
CPT/HCPCS: 80048; 80053; 80061; 80177; 80307; 82306; 82607; 83036; 84443; 85025; 93005; 99285; Q0163

== ENCOUNTER 2017-05-02 11:33 | Emergency (ER) | payer BC ==
[~2017-05-02 11:33] MED LIST: BENZ0.5T PO; LEVE250 PO; RISP2TAB37 PO
[2017-05-02 11:53] VITALS: BP 116/82; PULSE 96; RESP 18; TEMP 97.8; O2SAT 99
[2017-05-02 12:06] VITALS: BP 133/63; PULSE 85; RESP 17; O2SAT 100
[2017-05-02 12:15] VITALS: O2SAT 100
[2017-05-02] MEDS ORDERED: NALOXONE HCL 2 MG/2 ML VIAL IM ONE (12:30)
[2017-05-02 12:50] LABS: AUTOMATED NEUTROPHIL # 5.4 TH/MM3 (1.8-7.7); BASOPHIL % 0.5 % (0.0-2.0); EOSINOPHIL % 0.4 % (0.0-4.0); HEMATOCRIT 39.6 % (39.0-51.0); HEMOGLOBIN 13.8 GM/DL (13.0-17.0); LYMPH % 13.4 % (9.0-44.0); LYMPHOCYTE # 0.9 TH/MM3 (1.0-4.8); MEAN CELL VOLUME 88.9 FL (80.0-100.0); MEAN CORPUSCULAR HEMOGLOBIN 31.1 PG (27.0-34.0); MEAN PLATELET VOLUME 8.7 FL (7.0-11.0); MONO % 8.9 % (0.0-8.0); MONOCYTE # 0.6 TH/MM3 (0-0.9); NEUT % 76.8 % (16.0-70.0); PLATELET COUNT 202 TH/MM3 (150-450); RED BLOOD COUNT 4.45 MIL/MM3 (4.50-5.90); RED CELL DISTRIBUTION WIDTH 13.5 % (11.6-17.2)
[2017-05-02 13:04] LABS: BICARBONATE 27.6 MEQ/L (21.0-32.0); CALCIUM 8.4 MG/DL (8.5-10.1); CREATININE 0.91 MG/DL (0.60-1.30)
[2017-05-02 13:51] VITALS: BP 131/62; PULSE 81; RESP 17; O2SAT 100
--- NOTE | 2017-05-02 14:06 | PD ---
HPI Chief Complaint: OD/ Ingestion Time Seen by Provider: 12:18 Travel History International Travel<30 days: No Contact w/Intl Traveler<30days: No Traveled to known affect area: No History of Present Illness HPI 21-year-old male with a history of IV drug use in the past, who presents here via EMS after he states he snorted heroin today. Patient states he has been clean from using drugs since April 08. He states he had a lapse of judgment and snorted heroin this morning. There are no other complaints. Patient states he is not shot up since March. He denies any fevers, chills. He denies any other symptoms at this time. He reports he did drink a 4 [place] and smoke a little marijuana in addition to the heroin. PFSH Past Medical History Anxiety: Yes Depression: Yes Cancer: Yes Cardiovascular Problems: No Chemotherapy: No Diabetes: No Diminished Hearing: No Endocrine: No Genitourinary: No Headaches: Yes Immune Disorder: No Implanted Vascular Access Dvce: Yes Musculoskeletal: No Neurologic: Yes (S/P brain surgery, on Keppra) Psychiatric: Yes (substance abuse disorder, history of multiple suicide attempts) Reproductive: No Respiratory: No Migraines: Yes Radiation Therapy: No Seizures: No ?: Not Past Surgical History Body Medical Devices: SHUNT IN BRAIN Neurologic Surgery: Yes (SHUNT IN HEAD) Other Surgery: Yes (Removal of Brain Tumor, Hx Brain Cancer) Social History Alcohol Use: No Tobacco Use: Yes Substance Use: Yes (COCAINE HERION METH THC) Allergies-Medications (Allergen,Severity, Reaction): Coded Allergies: vancomycin (Verified Allergy, Unknown, 05/02/17) Reported Meds & Prescriptions Reported Meds & Active Scripts Active Risperdal (Risperidone) 2 Mg Tab 2 Mg PO BID Keppra (Levetiracetam) 250 Mg Tab 250 Mg PO Q12HR Benztropine (Benztropine Mesylate) 0.5 Mg Tab 0.5 Mg PO BID Reported Risperdal (Risperidone) 2 Mg Tab 2 Mg PO BID Benztropine (Benztropine Mesylate) 0.5 Mg Tab 0.5 Mg PO BID Keppra (Levetiracetam) 250 Mg Tab 250 Mg PO BID Review of Systems Except as stated in HPI: all other systems reviewed are Neg General / Constitutional: No: Fever HENT: No: Headaches, Lightheadedness, Neck Pain Cardiovascular: No: Chest Pain or Discomfort, Palpitations Respiratory: No: Cough, Shortness of Breath Gastrointestinal: No: Nausea, Vomiting Genitourinary: No: Dysuria, Incontinence Musculoskeletal: No: Weakness, Pain Neurologic: Positive: Other (Fatigued), No: Weakness, Dizziness, Slurred Speech Psychiatric: Positive: Substance Abuse, No: Suicidal Ideations Physical Exam Narrative GENERAL: Well-developed well-nourished male in no acute respiratory distress. SKIN: Focused skin assessment warm/dry. HEAD: Atraumatic. Normocephalic. EYES: Pupils equal and round. No scleral icterus. No injection or drainage. ENT: No nasal bleeding or discharge. Mucous membranes pink and moist. NECK: Trachea midline. Supple. CARDIOVASCULAR: Regular rate and rhythm. No murmur appreciated. RESPIRATORY: No accessory muscle use. Clear to auscultation. Breath sounds equal bilaterally. GASTROINTESTINAL: Abdomen soft, non-tender, nondistended. Hepatic and splenic margins not palpable. MUSCULOSKELETAL: No obvious deformities. No clubbing. No cyanosis. No edema. NEUROLOGICAL: Sleepy but arousable. No obvious cranial nerve deficits. Motor grossly within normal limits. Normal speech. Data Data Last Documented VS Vital Signs Date Time Temp Pulse Resp B/P (MAP) Pulse Ox O2 Delivery O2 Flow Rate FiO2 05/02/17 16:00 92 17 116/58 (77) 100 Room Air 05/02/17 11:53 97.8 Orders Orders Naloxone Inj (Narcan Inj) (05/02/17 12:30) Complete Blood Count With Diff (05/02/17 12:18) Basic Metabolic Panel (Bmp) (05/02/17 12:18) Iv Access Insert/Monitor (05/02/17 12:18) Ecg Monitoring (05/02/17 12:18) Oximetry (05/02/17 12:18) Drug Screen, Random Urine (05/02/17 12:18) Labs Laboratory Tests Test 05/02/17 12:30 05/02/17 18:15 White Blood Count 7.0 TH/MM3 Red Blood Count 4.45 MIL/MM3 Hemoglobin 13.8 GM/DL Hematocrit 39.6 % Mean Corpuscular Volume 88.9 FL Mean Corpuscular Hemoglobin 31.1 PG Mean Corpuscular Hemoglobin Concent 35.0 % Red Cell Distribution Width 13.5 % Platelet Count 202 TH/MM3 Mean Platelet Volume 8.7 FL Neutrophils (%) (Auto) 76.8 % Lymphocytes (%) (Auto) 13.4 % Monocytes (%) (Auto) 8.9 % Eosinophils (%) (Auto) 0.4 % Basophils (%) (Auto) 0.5 % Neutrophils # (Auto) 5.4 TH/MM3 Lymphocytes # (Auto) 0.9 TH/MM3 Monocytes # (Auto) 0.6 TH/MM3 Eosinophils # (Auto) 0.0 TH/MM3 Basophils # (Auto) 0.0 TH/MM3 CBC Comment DIFF FINAL Differential Comment Blood Urea Nitrogen 13 MG/DL Creatinine 0.91 MG/DL Random Glucose 110 MG/DL Calcium Level 8.4 MG/DL Sodium Level 141 MEQ/L Potassium Level 3.8 MEQ/L Chloride Level 105 MEQ/L Carbon Dioxide Level 27.6 MEQ/L Anion Gap 8 MEQ/L Estimat Glomerular Filtration Rate 104 ML/MIN MDM Medical Decision Making Medical Screen Exam Complete: Yes Emergency Medical Condition: Yes Differential Diagnosis Opiate overdose versus metabolic derangement versus substance-induced mood disorder Narrative Course 21-year-old male with a history of IV drug use, who reports she has been clean since April 08, who presents today after snorting heroin. Patient also states he drank a 4 [place] and had some marijuana. The patient is sleepy however arousable. He has been given 4 mg of IM Narcan. He has been given IV fluids. He will be observed until he is awake enough to go home. At this point he does not require intubation. Diagnosis Primary Impression: Opiate overdose Referrals: [facility] Additional Instructions: Stop using drugs. Follow-up with Narcotics Anonymous. Condition: Stable Jarrod Carlisle MD May 02, 2017 14:06
[2017-05-02 16:00] VITALS: BP 116/58; PULSE 92; RESP 17; O2SAT 100
== END 2017-05-02 23:00 | disposition home or self-care (01) ==
LOC: NEPE 11:33 → NEDAMB 23:00
DX: T40.1X4A Poisoning by heroin, undetermined, initial encounter (principal); Z72.0 Tobacco use; F14.90 Cocaine use, unspecified, uncomplicated; F15.90 Other stimulant use, unspecified, uncomplicated
CPT/HCPCS: 80048; 80307; 85025; 96372; 99283; J2310

== ENCOUNTER 2017-05-16 17:43 | Emergency (ER) | payer BC ==
[2017-05-16 18:08] VITALS: BP 136/83; PULSE 70; RESP 18; TEMP 99.1; O2SAT 98
--- NOTE | 2017-05-16 19:11 | PD ---
HPI Chief Complaint: Medical Clearance Time Seen by Provider: 18:57 Travel History International Travel<30 days: No Contact w/Intl Traveler<30days: No Traveled to known affect area: No History of Present Illness HPI 21-year-old male presents to the ED for evaluation of a 3 month history of hoarse voice. Gradual onset. Patient can identify no alleviating or exacerbating factors. He is a current smoker since the age of 11. He also endorses smoking marijuana and methamphetamine. He denies sinus congestion, rhinorrhea, cough, fevers, chills, difficulty swallowing, chest pain, shortness of breath, nausea, vomiting. No treatment attempted at home. He requests a dose of ibuprofen. He states that "I've been walking all day and my feet are really sore." PFSH Past Medical History Anxiety: Yes Depression: Yes Cancer: Yes Cardiovascular Problems: No Chemotherapy: No Diabetes: No Diminished Hearing: No Endocrine: No Genitourinary: No Headaches: Yes Immune Disorder: No Implanted Vascular Access Dvce: Yes Musculoskeletal: No Neurologic: Yes (S/P brain surgery, on Keppra) Psychiatric: Yes (substance abuse disorder, history of multiple suicide attempts) Reproductive: No Respiratory: No Migraines: Yes Radiation Therapy: No Seizures: No Past Surgical History Body Medical Devices: SHUNT IN BRAIN Neurologic Surgery: Yes (SHUNT IN HEAD) Other Surgery: Yes (Removal of Brain Tumor, Hx Brain Cancer) Social History Alcohol Use: No Tobacco Use: Yes Substance Use: Yes (COCAINE HERION METH THC) Allergies-Medications (Allergen,Severity, Reaction): Coded Allergies: vancomycin (Verified Allergy, Unknown, 05/02/17) Reported Meds & Prescriptions Reported Meds & Active Scripts Active Claritin (Loratadine) 10 Mg Cap 10 Mg PO DAILY Risperdal (Risperidone) 2 Mg Tab 2 Mg PO BID Keppra (Levetiracetam) 250 Mg Tab 250 Mg PO Q12HR Benztropine (Benztropine Mesylate) 0.5 Mg Tab 0.5 Mg PO BID Reported Risperdal (Risperidone) 2 Mg Tab 2 Mg PO BID Benztropine (Benztropine Mesylate) 0.5 Mg Tab 0.5 Mg PO BID Keppra (Levetiracetam) 250 Mg Tab 250 Mg PO BID Review of Systems Except as stated in HPI: all other systems reviewed are Neg Physical Exam Narrative GENERAL: Well-nourished, well-developed white male in no acute distress. SKIN: Warm and dry. HEAD: Normocephalic. Atraumatic. EYES: No scleral icterus. No injection or drainage. PERRLA. EOMI. ENT: Pearly maier tympanic membranes bilaterally. Nasal mucosa is moist. Oropharynx without erythema, edema or exudate. Mild posterior cobblestoning. Uvula midline. Airway patent. NECK: Supple, trachea midline. No JVD or lymphadenopathy. CARDIOVASCULAR: Regular rate and rhythm without murmurs, gallops, or rubs. RESPIRATORY: Breath sounds clear and equal bilaterally. No accessory muscle use. GASTROINTESTINAL: Abdomen soft, non-tender, nondistended. + Bowel sounds MUSCULOSKELETAL: No cyanosis, or edema. Bilateral feet with multiple blisters. Walks with a normal gait. BACK: Nontender without obvious deformity. No CVA tenderness. Data Data Last Documented VS Vital Signs Date Time Temp Pulse Resp B/P (MAP) Pulse Ox O2 Delivery O2 Flow Rate FiO2 05/16/17 18:08 99.1 70 18 136/83 (100) 98 Orders Orders Ibuprofen (Motrin) (05/16/17 19:15) Ed Discharge Order (05/16/17 19:12) [facility] Medical Decision Making Medical Screen Exam Complete: Yes Emergency Medical Condition: Yes Differential Diagnosis Laryngitis versus chronic cough versus musculoskeletal pain versus transferred versus other Narrative Course 21-year-old male presents to the ED for evaluation of a 3 month history of hoarse voice. Gradual onset. Patient can identify no alleviating or exacerbating factors. He is a current smoker since the age of 11. He also endorses smoking marijuana and methamphetamine. He denies sinus congestion, rhinorrhea, cough, fevers, chills, difficulty swallowing, chest pain, shortness of breath, nausea, vomiting. He requests a dose of ibuprofen. He states that "I've been walking all day and my feet are really sore." Vitals reviewed. ENT exam reveals mild posterior cobblestoning of the oropharynx but is otherwise unremarkable. Patient does have several blisters on his feet but the exam there is also reassuring. Patient was provided a single dose of ibuprofen. He is prescribed 30 days of ranitidine. He is instructed to follow with the [facility] or the ENT for further evaluation. He is stable and discharged home. Diagnosis Primary Impression: Hoarseness, persistent Additional Impression: Foot pain, bilateral Referrals: [facility] Additional Instructions: Rest, hydrate. Stop smoking as this can worsen the hoarse voice. Follow-up with [facility] for further evaluation. Return to the ED for any urgent or emergent medical condition. Med/Other Pt SpecificInfo: Prescription(s) given Scripts Loratadine (Claritin) 10 Mg Cap 10 MG PO DAILY for Allergy Management, #30 CAP 0 Refills Prov: Alvin Arenas MD 05/16/17 Disposition: DISCHARGE HOME Condition: Stable Peg Levine May 16, 2017 19:11
[2017-05-16] MEDS ORDERED: CLAR10CA3 PO (19:12)
[2017-05-16] MEDS ORDERED: IBUPROFEN 600 MG TAB PO ONE (19:15)
== END 2017-05-16 19:44 | disposition home or self-care (01) ==
LOC: NED 17:43 → NEPK 19:44
DX: R49.0 Dysphonia (principal); M79.672 Pain in left foot; M79.671 Pain in right foot; F41.9 Anxiety disorder, unspecified; F32.9 Major depressive disorder, single episode, unspecified; Z98.2 Presence of cerebrospinal fluid drainage device; Z72.0 Tobacco use; Z88.5 Allergy status to narcotic agent; Z79.899 Other long term (current) drug therapy
CPT/HCPCS: 99283